=== PATIENT | male | born 1960 | race African-American/Black ===

== ENCOUNTER 2022-12-19 05:31 | Day surgery (SDC) | payer OTHER ==
[2022-12-18 11:35] VITALS: BMI 27.8
[2022-12-19 10:05] VITALS: TEMP 97.6
[2022-12-19 10:08] VITALS: BP 106/73; PULSE 76; RESP 20
== END 2022-12-19 10:08 | disposition home or self-care (01) ==
LOC: JASU-ENDO 05:31
PROVIDERS: ATTEND Internal Medicine Gastroenterology
PROC: 0DBL8ZX Excision of Transverse Colon, Via Natural or Artificial Opening Endoscopic, Diagnostic (ICD-10-PCS; 2022-12-19)
PROC: 0DBP8ZX Excision of Rectum, Via Natural or Artificial Opening Endoscopic, Diagnostic (ICD-10-PCS; principal; 2022-12-19 09:00)
DX: Z12.11 Encounter for screening for malignant neoplasm of colon (principal); D12.3 Benign neoplasm of transverse colon; K62.1 Rectal polyp; K64.8 Other hemorrhoids

== ENCOUNTER 2023-01-21 04:33 | Day surgery (SDC) | payer OTHER ==
[2023-01-08 10:26] VITALS: BMI 27.8
[2023-01-21] MEDS ORDERED: MIDAZOLAM HCL 2 MG/2 ML SINGLE DOSE VIAL ONE (07:41)
[2023-01-21] MEDS ORDERED: PROPOFOL 40 ML ONE (07:41)
[2023-01-21] MEDS ORDERED: HYDROmorphone HCl 2 MG/ML VIAL ONE (07:41)
[2023-01-21] MEDS ORDERED: PROPOFOL 20 ML ONE (07:42)
[2023-01-21] MEDS ORDERED: PHENYLEPHRINE HCL 10 MG/1 ML SINGLE DOSE VIAL ONE (08:40)
[2023-01-21] MEDS ORDERED: SODIUM CHLORIDE 0.9% P/F 10 ML VIAL IJ ONE ×2 (08:45→09:11)
[2023-01-21] MEDS ORDERED: ceFAZolin SODIUM 1 GM VIAL ONE ×2 (08:45→09:11)
[2023-01-21] MEDS ORDERED: DEXAMETHASONE SOD PHOSPHATE 4 MG/1 ML VIAL ONE (08:45)
[2023-01-21] MEDS ORDERED: ceFAZolin SODIUM 1 GM VIAL IVPB ONE (08:45)
[2023-01-21] MEDS ORDERED: ONDANSETRON 4 MG/2 ML VIAL ONE (08:45)
[2023-01-21] MEDS ORDERED: HEPARIN NA (PORCINE) 5,000 UNITS/ML 1ML VIAL SQ ONE (08:57)
[2023-01-21] MEDS ORDERED: HEPARIN NA (PORCINE) 5,000 UNITS/ML 1ML VIAL ONE (09:02)
[2023-01-21] MEDS ORDERED: ROCURONIUM BROMIDE 50 MG/5 ML SYRINGE ONE ×2 (09:02→10:36)
[2023-01-21] MEDS ORDERED: BUPIVACAINE HCL/PF 0.25% (2.5MG/ML) 10 ML VIAL IJ ONE (09:05)
[2023-01-21] MEDS ORDERED: SUGAMMADEX SODIUM 200 MG/2 ML VIAL ONE (09:37)
[2023-01-21] MEDS ORDERED: KETOROLAC TROMETHAMINE 30 MG/1 ML VIAL ONE (09:44)
[2023-01-21] MEDS ORDERED: oxyCODONE HCL 5 MG TABLET PO PRN (11:02)
[2023-01-21] MEDS ORDERED: LACTATED RINGERS SOLUTION 1,000 ML IV SCH (11:15)
[2023-01-21 15:35] VITALS: RESP 20; TEMP 97.8
[2023-01-21 15:38] VITALS: BP 132/87; PULSE 72
== END 2023-01-21 14:40 | disposition home or self-care (01) ==
LOC: JASU-SURG 04:33
PROVIDERS: ATTEND Surgery
PROC: 0WUF4JZ Supplement Abdominal Wall with Synthetic Substitute, Percutaneous Endoscopic Approach (ICD-10-PCS; principal; 2023-01-21 08:00)
DX: K42.9 Umbilical hernia without obstruction or gangrene (principal)
CPT/HCPCS: 94760; C1781; J1644